=== PATIENT | male | born 1985 | race Caucasian/White ===

== ENCOUNTER 2019-09-01 12:58 | Emergency (ER) | payer MEDICAID ==
[~2019-09-01] VITALS: Ht 170.2 cm; Wt 86.6 kg
[2019-09-01] MEDS ORDERED: IV NS 1000 ML 1,000 ML IV ONE (13:02)
[2019-09-01] MEDS ORDERED: ACETAMINOPHEN ES 500 MG TABLET PO ONE (13:15)
[2019-09-01] MEDS ORDERED: ACETAMINOPHEN ES 500 MG TABLET ONE (13:21)
[2019-09-01 13:30] LABS: BASOPHILS % (AUTO) 0.4 % (0.0-2.0); EOSINOPHILS % (AUTO) 0.4 % (0.0-7.0); HEMATOCRIT 49.6 % (36.7-47.1); HEMOGLOBIN 16.9 g/dL (12.5-16.3); LYMPHOCYTES % (AUTO) 30.7 % (20.5-51.5); MEAN CORPUSCULAR HEMOGLOBIN 30.1 uug (23.8-33.4); MEAN CORPUSCULAR HGB CONC 34 g/dL (32.5-36.3); MEAN CORPUSCULAR VOLUME 88.5 fL (73.0-96.2); MONOCYTES # (AUTO) 0.5 K/uL (2.0-10.0); MONOCYTES % (AUTO) 7.2 % (0.0-11.0); NEUTROPHILS # (AUTO) 3.9 K/uL (1.8-8.9); NEUTROPHILS % (AUTO) 61.3 % (38.5-71.5); PLATELET COUNT (AUTO) 237 K/uL (152-348); RED BLOOD CELL COUNT(AUTO) 5.61 MIL/uL (4.06-5.63); WHITE BLOOD COUNT (AUTO) 6.4 K/uL (3.6-10.2)
--- NOTE | 2019-09-01 13:41 | NUR ---
BIB [facility] for c/o cough, fever and weakness. He is A/A/O x3 in no distress. Placed on a monitor. IV placed. Barrera virus test done and sent to lab.
[2019-09-01 13:42] LABS: BILIRUBIN,TOTAL 0.3 mg/dL (0.2-1.0); POTASSIUM 3.6 mmol/L (3.5-5.1)
--- NOTE | 2019-09-01 14:22 | NUR ---
IV removed. Catheter intact and site benign. Pressure and 4x4 gauze applied to site. No bleeding noted.
--- NOTE | 2019-09-01 14:30 | NUR ---
DC and follow up instructions given and explained to patient who states he understands all instructions.
[2019-09-01 14:44] VITALS: BP 136/87
== END 2019-09-01 14:44 | disposition home or self-care (01) ==
LOC: ER 12:58
DX: R05 Cough (principal); R07.81 Pleurodynia; Z59.0 Homelessness; Z03.818 Encounter for observation for suspected exposure to other biological agents ruled out
CPT/HCPCS: 36415; 70030-TC; 71045; 83605; 83615; 85025; 85730; 87040; 93005; A4663; A9150; J7030